=== PATIENT | female | born 1995 | race African-American/Black ===

== ENCOUNTER 2021-03-25 13:54 | Emergency (ER) | payer BC ==
[~2021-03-25] VITALS: Ht 180.3 cm; Wt 99.8 kg
[2021-03-25 14:54] LABS: ABSOLUTE NEUTROPHILS 7.5 thou/uL (1.4-8.2); ANION GAP 8 mmol/L (7-16); BASOPHILS 0.5 % (0.0-2.0); BUN 9 mg/dL (7-18); CHLORIDE 105 mmol/L (98-107); CO2 25 mmol/L (21-32); CREATININE 0.9 mg/dL (0.6-1.0); EOSINOPHILS 2.1 % (0.0-3.0); GLUCOSE 97 mg/dL (74-106); HEMATOCRIT 30.1 % (37.0-47.0); LYMPHOCYTES 16.9 % (24.0-44.0); MCH 20.8 pg (26.0-34.0); MCV 69.2 fL (80.0-100.0); MONOCYTES 5.2 % (1.0-8.0); PLATELET COUNT 510 thou/uL (150-400); POLYS 75.3 % (36.0-66.0); POTASSIUM 3.9 mmol/L (3.5-5.1); RBC 4.36 mil/uL (4.20-5.00); SODIUM 138 mmol/L (136-145); WBC 9.9 thou/uL (4.0-11.0)
[2021-03-25 15:12] LABS: ALBUMIN 3.4 g/dL (3.4-5.0); LIPASE 171 U/L (73-393); MAGNESIUM 2.3 mg/dL (1.8-2.4); SGOT 35 U/L (15-37); SGPT 37 U/L (14-59); TOTAL BILIRUBIN 0.2 mg/dL (0.2-1.0); TOTAL PROTEIN 7.8 g/dL (6.4-8.2)
[2021-03-25 16:15] VITALS: BP 132/65
[2021-03-25 20:32] LABS: ANISOCYTOSIS 2+; HYPOCHROMASIA 2+; MICROCYTES 1+; OVALOCYTES 1+
--- NOTE | 2021-03-26 07:26 | EKG ---
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1995 Requested By: Anderson Galdamez Order Number: [id number] MD: Kieran Valente Measurements Intervals [place] Rate: 68 P: 0 MI: 120 QRS: 135 QRSD: 88 T: 144 QT: 384 QTc: 409 Interpretive Statements Right and left arm electrode reversal, interpretation assumes no reversal Sinus rhythm Right axis deviation Borderline Q waves in lateral leads No previous ECG available for comparison Electronically Signed On 03-26-2021 7:26:33 [employer] by Kieran Valente [email or web address] <ELECTRONICALLY SIGNED> By: Kieran Valente MD, [facility] 03/26/21 0726 1401 1401 Kieran Valente MD, FACC /EPI
--- NOTE | 2021-03-27 07:11 | EKG ---
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
== END 2021-03-25 16:16 | disposition home or self-care (01) ==
LOC: ER 13:54
PROVIDERS: Emergency Medicine
DX: R07.89 Other chest pain (principal); R00.2 Palpitations; Z90.49 Acquired absence of other specified parts of digestive tract